=== PATIENT | male | born 1960 | race Hispanic/Latino ===

== ENCOUNTER 2016-05-07 20:24 | Inpatient (IN) | payer MEDICAID, OTHER ==
[2016-05-07 21:41] LABS: BASO % 0.4 % (0.0-2.0); EOS % 0.4 % (0.0-4.0); HEMATOCRIT 47.2 % (35.0-51.0); LYMPH # 1.9 K/uL (1.0-4.3); LYMPH % 21.7 % (20.0-40.0); MEAN CELL VOLUME 92.2 fl (80.0-94.0); MEAN CORPUSCULAR HEMOGLOBIN 30.2 pg (27.0-31.0); MEAN CORPUSCULAR HGB CONC 32.8 g/dL (33.0-37.0); MEAN PLATELET VOLUME 8.2 fl (7.2-11.7); MONO # 0.7 K/uL (0.0-0.8); MONO % 8.5 % (0.0-10.0); NRBC % 0.1 % (0.0-0.0); RED CELL DISTRIBUTION WIDTH 13.8 % (11.5-14.5); WHITE BLOOD COUNT 8.7 K/uL (4.8-10.8)
[2016-05-07 21:52] LABS: ALB/GLOB RATIO 1.4 (1.0-2.1); ALCOHOL SERUM < 10 mg/dl (0-10); ALKALINE PHOSPHATASE 60 U/L (38-126); ALT/SGPT 52 U/L (21-72); AST/SGOT 107 U/L (17-59); BILIRUBIN,TOTAL 0.6 mg/dl (0.2-1.3); BLOOD UREA NITROGEN 23 mg/dl (9-20); CALCIUM 10.2 mg/dL (8.4-10.2); CARBON DIOXIDE 20 mmol/L (22-30); CHLORIDE 105 mmol/L (98-107); GFR AFRICAN-AMERICAN > 60; GLUCOSE,RANDOM 111 mg/dL (75-110); POTASSIUM 3.4 MMOL/L (3.6-5.0); SODIUM 148 mmol/l (132-148); TOTAL PROTEIN 8.5 G/DL (6.3-8.2)
[2016-05-07] MEDS ORDERED: Potassium Chloride 20 mEq ER Tab PO ONE (22:24)
--- NOTE | 2016-05-07 22:27 | ED PDOC ---
HPI: Psych/Substance Abuse Time Seen by Provider: 05/07/16 20:38 Chief Complaint (Nursing): Psychiatric Evaluation Chief Complaint (Provider): crisis eval History Per: Patient, EMS Additional History Per: Patient, EMS Additional Complaint(s): 55 y/o male brought in by EMS for crisis eval. Patient found outside staring at stop sign. Upon arrival patient with flight of idea's, speaking in yazdanism terms. however, responds appropriately when direct questions asked. Denies suicidal/homicidal ideations, acute medical complaints. Past Medical History Reviewed: Historical Data, Nursing Documentation, Vital Signs Vital Signs: Last Vital Signs Temp 97.5 F L 05/07/16 20:28 Pulse 96 H 05/07/16 20:28 Resp 16 05/07/16 20:28 BP 162/98 H 05/07/16 20:28 Pulse Ox 99 05/07/16 20:28 - Medical History PMH: Hypercholesterolemia Denies: Chronic Kidney Disease - Surgical History Surgical History: CABG (july 15) - Family History Family History: States: Unknown Family Hx - Immunization History Hx Tetanus Toxoid Vaccination: No Hx Influenza Vaccination: Yes Hx Pneumococcal Vaccination: No - Home Medications Home Medications: Ambulatory Orders Medication Instructions Recorded Pseudoephedrine Hydrochlorid 120 mg PO Q12 PRN 05/28/13 [Sudafed 12 Hour] Albuterol HFA [Ventolin HFA 90 2 puff IH [id number] PRN #1 puff 12/19/13 mcg/actuation (8 g)] - Allergies Allergies/Adverse Reactions: Allergies Allergy/AdvReac Type Severity Reaction Status Date / Time No Known Allergies Allergy Verified 12/19/13 20:06 Review of Systems ROS Statement: Except As Marked, All Systems Reviewed And Found Negative Psych: Positive for: Psychosis Physical Exam - Reviewed Nursing Documentation Reviewed: Yes Vital Signs Reviewed: Yes - Physical Exam Appears: Positive for: Well, Non-toxic, No Acute Distress Head Exam: Positive for: ATRAUMATIC, NORMAL INSPECTION, NORMOCEPHALIC Skin: Positive for: Normal Color Eye Exam: Positive for: Normal appearance, EOMI, PERRL ENT: Positive for: Normal ENT Inspection Cardiovascular/Chest: Positive for: Regular Rate, Rhythm Respiratory: Positive for: Normal Breath Sounds Gastrointestinal/Abdominal: Positive for: Normal Exam Extremity: Positive for: Normal ROM Neurologic/Psych: Positive for: Alert, Oriented - Laboratory Results Result Diagrams: 05/07/16 21:20 05/07/16 21:20 - ECG ECG: Positive for: Viewed By Me (reviewed by ED attending) ECG Rhythm: Positive for: Sinus Rhythm O2 Sat by Pulse Oximetry: 99 - Radiology X-Ray: Viewed By Me X-Ray Interpretation: No Acute Disease - Progress ED Course And Treament: labs, ekg, chest xray, urine, crisis eval EXAM: CT Head Without Intravenous Contrast. CLINICAL HISTORY: 55 years old, male; Signs and symptoms; Altered mental status/memory loss; Additional info: AMS TECHNIQUE: Axial computed tomography images of the head/brain without intravenous contrast. This CT exam was performed using one or more of the following dose reduction techniques: automated exposure control, adjustment of the mA and/or kV according to patient size, and/or use of iterative reconstruction technique. Coronal reformatted images were created and reviewed. EXAM DATE/TIME: 05/07/2016 11:33 PM COMPARISON: There are no prior studies for comparison. FINDINGS: Brain: Ventricles are normal in size and configuration. There is no midline shift. There is mild prominence of sulci and gyri. There are no intra-axial or extra-axial mass lesions or areas of hemorrhage. There are no abnormal fluid collections. Shirley-white differentiation is maintained. Ventricles: See above. Bones: Cranial vault is intact. Soft tissues: unremarkable Sinuses: There is mucoperiosteal thickening in the sinuses. There is an air- fluid level in the right maxillary sinus.. Ears and mastoids: Middle ears and mastoids are unremarkable Orbits: Orbital contents are unremarkable. IMPRESSION: No acute intracranial abnormality; sinus disease Medical Decision Making Medical Decision Making: Patient medically stable for psych admission. Disposition - Clinical Impression Clinical Impression: Acute psychosis - Patient ED Disposition Is Patient to be Admitted: Yes - Disposition Disposition Time: 00:10 Condition: STABLE - Pt Status Changed To: Hospital Disposition Of: Inpatient - Admit Certification Admit to Inpatient:: After my assessment, the patient will require hospitalization for at least two midnights. This is because of the severity of symptoms shown, intensity of services needed, and/or the medical risk in this patient being treated as an outpatient. - POA Present On Arrival: None
[2016-05-07 22:44] LABS: RBC URINE 7 /hpf (0-3); URINE BILIRUBIN NEGATIVE (NEGATIVE); URINE BLOOD NEGATIVE (NEGATIVE); URINE COLOR AMBER (YELLOW); URINE GLUCOSE (UA) NEG (Normal); URINE KETONE 20 mg/dL (NEGATIVE); URINE LEUKOCYTE ESTERASE NEG Leu/uL (Negative); URINE PROTEIN 100 mg/dL (NEGATIVE); WBC URINE 8 /hpf (0-5)
--- NOTE | 2016-05-08 00:11 | CT ---
EXAM: CT Head Without Intravenous Contrast. CLINICAL HISTORY: 55 years old, male; Signs and symptoms; Altered mental status/memory loss; Additional info: AMS TECHNIQUE: Axial computed tomography images of the head/brain without intravenous contrast. This CT exam was performed using one or more of the following dose reduction techniques: automated exposure control, adjustment of the mA and/or kV according to patient size, and/or use of iterative reconstruction technique. Coronal reformatted images were created and reviewed. EXAM DATE/TIME: 05/07/2016 11:33 PM COMPARISON: There are no prior studies for comparison. FINDINGS: Brain: Ventricles are normal in size and configuration. There is no midline shift. There is mild prominence of sulci and gyri. There are no intra-axial or extra-axial mass lesions or areas of hemorrhage. There are no abnormal fluid collections. Shirley-white differentiation is maintained. Ventricles: See above. Bones: Cranial vault is intact. Soft tissues: unremarkable Sinuses: There is mucoperiosteal thickening in the sinuses. There is an air-fluid level in the right maxillary sinus.. Ears and mastoids: Middle ears and mastoids are unremarkable Orbits: Orbital contents are unremarkable. IMPRESSION: No acute intracranial abnormality; sinus disease
[2016-05-08 02:20] VITALS: O2SAT 99
[2016-05-08] MEDS ORDERED: DiphenhydrAMINE 50 mg/ml Inj IM PRN (02:28)
[2016-05-08] MEDS ORDERED: Alum-Mag Hydrox-Simethicone Susp (30 mL) PO PRN (02:28)
--- NOTE | 2016-05-08 08:22 | RAD ---
HISTORY: admission COMPARISON: 12/19/2013 TECHNIQUE: Chest PA and lateral FINDINGS: LUNGS: No active pulmonary disease. PLEURA: No significant pleural effusion identified. No pneumothorax apparent. CARDIOVASCULAR: Normal. OSSEOUS STRUCTURES: Sternal wires VISUALIZED UPPER ABDOMEN: Normal. OTHER FINDINGS: None. IMPRESSION: No active disease.
--- NOTE | 2016-05-08 17:31 | CARD ---
APPROVED REPORT EKG Measurement Heart [id number] <Conclusion> Normal sinus rhythm Possible Left atrial enlargement Borderline ECG
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
[2016-05-08] MEDS ORDERED: Albuterol HFA 90 mcg/actuation (8 g) IH PRN (22:36)
[2016-05-09 07:29] LABS: BLOOD UREA NITROGEN 17 mg/dl (9-20); CALCIUM 9.8 mg/dL (8.4-10.2); CARBON DIOXIDE 26 mmol/L (22-30); CHLORIDE 104 mmol/L (98-107); GFR AFRICAN-AMERICAN > 60; GLUCOSE,RANDOM 89 mg/dL (75-110); POTASSIUM 3.5 MMOL/L (3.6-5.0); SODIUM 146 mmol/l (132-148)
--- NOTE | 2016-05-09 14:21 | PCM.PYCHPN ---
Psychiatric Progress Note - Psychiatric Progress Note Patient seen today, length of contact: in treatment team Patient Chief Complaint: i am being subservient aren't i? Problems Identified/Issues Discussed: pt seen in team. denying psychotic symptoms, but thoughts are not organized. he intellectualizes his symptoms/bizarre behaviors as an linguistic and philosophical choice. he takes risperdal despite denying he has a mental illness. he does endorse feeling better. he seems to be taking on a strategy to be passive and accepting any treatment offered to improve his chances of discharge. Medication Change: No Medical Record Reviewed: Yes Mental Status Examination - Cognitive Function Orientation: Person, Place, Situation Memory: Intact Attention: WNL Concentration: WNL Association: Loose Fund of Knowledge: WNL Decription of patient's judgement and insights: poor insight, fair judgment - Mood Mood: Neutral - Affect Affect: Blunted - Speech Speech: Appropriate - Formal Thought Process Formal Thought Process: Delusions, Paranoia, Loosening of associations, Flight of ideas Psychotic Thoughts and Behaviors: pt with disorganized thoughts, tangential answers to questions. - Suicidal Ideation Suicidal Ideation: No - Homicidal Ideation Homicidal Ideation: No Goal/Treatment Plan - Goal/Treatment Plan Need for Continued Stay: Remain at risks for inpatient hospitalization, Discharge may exacerbated symptoms, Severe functional impairment Progress Toward Problem(s) and Goals/Treatment Plan: schizophrenia needs further treatment will increase risperdal tomorrow disposition planing- could benefit from a php program Estimated Date of D/C: 05/14/16
--- NOTE | 2016-05-10 10:25 | PCM.PYCHPN ---
Psychiatric Progress Note - Psychiatric Progress Note Patient seen today, length of contact: in treatment team Patient Chief Complaint: i will do as i'm told Problems Identified/Issues Discussed: pt spends time in room talking to himself. he denies medication side effects. he is without any aggression or agitation. continues to deny he has a mental illness despite accepting treatment. Medication Change: No Medical Record Reviewed: Yes Mental Status Examination - Cognitive Function Orientation: Person, Place, Situation Memory: Intact Attention: WNL Concentration: WNL Association: Loose Fund of Knowledge: WNL Decription of patient's judgement and insights: superficial insight, fair judgment - Mood Mood: Neutral - Affect Affect: Blunted - Speech Speech: Appropriate - Formal Thought Process Formal Thought Process: Delusions, Paranoia, Loosening of associations, Flight of ideas - Suicidal Ideation Suicidal Ideation: No - Homicidal Ideation Homicidal Ideation: No Goal/Treatment Plan - Goal/Treatment Plan Need for Continued Stay: Remain at risks for inpatient hospitalization, Discharge may exacerbated symptoms, Severe functional impairment Progress Toward Problem(s) and Goals/Treatment Plan: schizophrenia needs further treatment will increase risperdal to 2mg hs disposition planing- could benefit from a php program Estimated Date of D/C: 05/14/16
--- NOTE | 2016-05-11 10:25 | PCM.PYCHPN ---
Psychiatric Progress Note - Psychiatric Progress Note Patient seen today, length of contact: discussed with team Patient Chief Complaint: did you get the article? Problems Identified/Issues Discussed: pt still pacing halls or in room talking to self. pt wants to share an article about psychology and multiple dimensions and asks to provide team with a power point presentation about the subject. he is complaint with medications. he denies side effects. he is bizarre in his behavior with peers./staff. Medication Change: Yes (increase risperdal) Medical Record Reviewed: Yes Mental Status Examination - Cognitive Function Orientation: Person, Place, Situation Memory: Intact Attention: WNL Concentration: WNL Association: Loose Fund of Knowledge: WNL - Mood Mood: Neutral - Affect Affect: Blunted - Speech Speech: Appropriate - Formal Thought Process Formal Thought Process: Delusions, Paranoia, Loosening of associations, Flight of ideas - Suicidal Ideation Suicidal Ideation: No - Homicidal Ideation Homicidal Ideation: No Goal/Treatment Plan - Goal/Treatment Plan Need for Continued Stay: Remain at risks for inpatient hospitalization, Discharge may exacerbated symptoms, Severe functional impairment Progress Toward Problem(s) and Goals/Treatment Plan: schizophrenia needs further treatment will increase risperdal to 2mg hs disposition planing- could benefit from a php program Estimated Date of D/C: 05/14/16
[2016-05-11] MEDS: Risperidone M tab 1 MG PO SCH (11:30)
[2016-05-12] MEDS: Risperidone M tab 1 MG PO SCH (09:39)
--- NOTE | 2016-05-12 10:30 | PCM.PYCHPN ---
Psychiatric Progress Note - Psychiatric Progress Note Patient seen today, length of contact: pt seen and evaluated Patient Chief Complaint: pt has remained very delusional and grandiose with disorganized thinking DSM 5 Symptoms Update: schizophrenia ,paranoid type Medication Change: Yes (increase risperdal) Medical Record Reviewed: Yes Mental Status Examination - Cognitive Function Orientation: Person, Place, Situation Memory: Intact Attention: WNL Concentration: WNL Association: Loose Fund of Knowledge: WNL - Mood Mood: Neutral - Affect Affect: Blunted - Speech Speech: Appropriate - Formal Thought Process Formal Thought Process: Delusions, Paranoia, Loosening of associations, Flight of ideas - Suicidal Ideation Suicidal Ideation: No - Homicidal Ideation Homicidal Ideation: No Goal/Treatment Plan - Goal/Treatment Plan Need for Continued Stay: Remain at risks for inpatient hospitalization, Discharge may exacerbated symptoms, Severe functional impairment Progress Toward Problem(s) and Goals/Treatment Plan: will increase risperdal to 2mg in am to stabilize the psychosis Estimated Date of D/C: 05/14/16
--- NOTE | 2016-05-13 13:21 | PCM.PYCHPN ---
Psychiatric Progress Note - Psychiatric Progress Note Patient seen today, length of contact: pt seen and evaluated Patient Chief Complaint: pt has remained very delusional and grandiose with disorganized thinking pt has been less paranoid with increase in risperdal Problems Identified/Issues Discussed: admitted for grandiose delusions and disorganized thinking DSM 5 Symptoms Update: schizophrenia disorganized Medication Change: Yes (increase risperdal) Medical Record Reviewed: Yes Mental Status Examination - Cognitive Function Orientation: Person, Place, Situation Memory: Intact Attention: WNL Concentration: WNL Association: Loose Fund of Knowledge: WNL - Mood Mood: Neutral - Affect Affect: Blunted - Speech Speech: Appropriate - Formal Thought Process Formal Thought Process: Delusions, Paranoia, Loosening of associations, Flight of ideas - Suicidal Ideation Suicidal Ideation: No - Homicidal Ideation Homicidal Ideation: No Goal/Treatment Plan - Goal/Treatment Plan Need for Continued Stay: Remain at risks for inpatient hospitalization, Discharge may exacerbated symptoms, Severe functional impairment Progress Toward Problem(s) and Goals/Treatment Plan: will increase risperdal to 2mg in am to stabilize the psychosis Estimated Date of D/C: 05/14/16
[2016-05-14] MEDS: Risperidone M TAB 2 MG PO SCH ×2 (10:14→23:33)
--- NOTE | 2016-05-14 11:25 | PCM.PYCHPN ---
Psychiatric Progress Note - Psychiatric Progress Note Patient seen today, length of contact: discussed with team Patient Chief Complaint: i am well thank you Problems Identified/Issues Discussed: pt still internally preoccupied. bizarre at times. attempts to engage peers/ staff in intellectual conversations on esoteric topics with little insight into his own behaviors and no acknowledgment that he has a mental illness. he is still agreeable to treatment and he is denying any medication side effects. Medication Change: Yes (continue to increase risperdal) Medical Record Reviewed: Yes Mental Status Examination - Cognitive Function Orientation: Person, Place, Situation Memory: Intact Attention: WNL Concentration: WNL Association: Loose Fund of Knowledge: WNL Decription of patient's judgement and insights: poor insight, fair judgment - Mood Mood: Neutral - Affect Affect: Blunted - Speech Speech: Appropriate - Formal Thought Process Formal Thought Process: Delusions, Paranoia, Loosening of associations, Flight of ideas - Suicidal Ideation Suicidal Ideation: No - Homicidal Ideation Homicidal Ideation: No Goal/Treatment Plan - Goal/Treatment Plan Need for Continued Stay: Remain at risks for inpatient hospitalization, Discharge may exacerbated symptoms, Severe functional impairment Progress Toward Problem(s) and Goals/Treatment Plan: schizophrenia needs further treatment will increase risperdal to 2mg hs and 2mg am disposition planing- could benefit from a php program Estimated Date of D/C: 05/18/16
--- NOTE | 2016-05-15 09:27 | PCM.PYCHPN ---
Psychiatric Progress Note - Psychiatric Progress Note Patient seen today, length of contact: Patient evaluated, chart reviewed, case discussed with team Problems Identified/Issues Discussed: Patient continues to be disorganized, loose and tangential on conversation. He reports his mood is good, but does not give direct answers to most questions. When asked about AH, he stated that all people hear AH; but it is unclear if he is actually having AH. He is stating that he wants to leave the hospital soon and is upset that he wasn't given an orientation on how to behave on the unit. Denies suicidal/homicidal ideation. Medication Change: Yes (Increase Risperdal to 2 mg PO AM/ 2.5 mg PO HS) Medical Record Reviewed: Yes Mental Status Examination - Cognitive Function Orientation: Person, Place, Situation Memory: Intact Attention: WNL Concentration: WNL Association: Loose Fund of Knowledge: WNL Decription of patient's judgement and insights: Poor I/J - Mood Mood: Neutral - Affect Affect: Broad - Speech Speech: Appropriate - Formal Thought Process Formal Thought Process: Delusions, Paranoia, Loosening of associations, Flight of ideas - Suicidal Ideation Suicidal Ideation: No - Homicidal Ideation Homicidal Ideation: No Goal/Treatment Plan - Goal/Treatment Plan Need for Continued Stay: Remain at risks for inpatient hospitalization, Discharge may exacerbated symptoms, Severe functional impairment Progress Toward Problem(s) and Goals/Treatment Plan: Impression: Schizophrenia, acutely psychotic and disorganized, requires continued inpatient admission for treatment and safety. Plan: -Increase Risperdal to 2 mg PO AM/ 2.5 mg PO HS -Individual, group and milieu tx -Disposition planing- could benefit from a php program Estimated Date of D/C: 05/18/16
[2016-05-15] MEDS: Risperidone M TAB 2 MG PO SCH ×2 (09:44→21:40)
--- NOTE | 2016-05-16 09:00 | PCM.PYCHPN ---
Psychiatric Progress Note - Psychiatric Progress Note Patient seen today, length of contact: discussed with team Patient Chief Complaint: i don't have psychosis Problems Identified/Issues Discussed: pt is refusing risperdal as he states it "freezes my whole alimentary canal" he denies being psychotic and defends his odd behaviors prior to admission as "psychoanalytic fanaticism" he feels he should be discharged and states he only stayed in the hospital because he was told he only would stay 5-7 days. he is pacing the halls, internally preoccupied. Medication Change: No ( ) Medical Record Reviewed: Yes Mental Status Examination - Cognitive Function Orientation: Person, Place, Situation Memory: Intact Attention: WNL Concentration: WNL Association: Loose Fund of Knowledge: WNL Decription of patient's judgement and insights: poor - Mood Mood: Neutral - Affect Affect: Blunted - Speech Speech: Appropriate - Formal Thought Process Formal Thought Process: Delusions, Paranoia, Loosening of associations, Flight of ideas Psychotic Thoughts and Behaviors: disorganized thoughts, denies a/v hallucinations - Suicidal Ideation Suicidal Ideation: No - Homicidal Ideation Homicidal Ideation: No Goal/Treatment Plan - Goal/Treatment Plan Need for Continued Stay: Remain at risks for inpatient hospitalization, Discharge may exacerbated symptoms, Severe functional impairment Progress Toward Problem(s) and Goals/Treatment Plan: schizophrenia needs further treatment will screen for involuntary hospitalization as pt is refusing treatment disposition planing- could benefit from a php program Estimated Date of D/C: 05/18/16
[2016-05-16 15:52] LABS: BASO % 0.8 % (0.0-2.0); EOS # 0.2 K/uL (0.0-0.7); EOS % 2.8 % (0.0-4.0); LYMPH # 1.6 K/uL (1.0-4.3); LYMPH % 28.3 % (20.0-40.0); MEAN CELL VOLUME 92.2 fl (80.0-94.0); MEAN CORPUSCULAR HEMOGLOBIN 30.5 pg (27.0-31.0); MEAN CORPUSCULAR HGB CONC 33.1 g/dL (33.0-37.0); MONO # 1.1 K/uL (0.0-0.8); NEUT # 2.7 K/uL (1.8-7.0); NEUT % 48.1 % (50.0-75.0); NRBC % 0.1 % (0.0-0.0); RED CELL DISTRIBUTION WIDTH 13.5 % (11.5-14.5); WHITE BLOOD COUNT 5.6 K/uL (4.8-10.8)
[2016-05-16 16:04] LABS: ALB/GLOB RATIO 1.5 (1.0-2.1); ALKALINE PHOSPHATASE 67 U/L (38-126); ALT/SGPT 49 U/L (21-72); AST/SGOT 46 U/L (17-59); BILIRUBIN,TOTAL 0.3 mg/dl (0.2-1.3); BLOOD UREA NITROGEN 12 mg/dl (9-20); CALCIUM 10.1 mg/dL (8.4-10.2); CARBON DIOXIDE 27 mmol/L (22-30); CHLORIDE 102 mmol/L (98-107); GFR AFRICAN-AMERICAN > 60; GLUCOSE,RANDOM 101 mg/dL (75-110); POTASSIUM 3.5 MMOL/L (3.6-5.0); SODIUM 145 mmol/l (132-148); TOTAL PROTEIN 7.8 G/DL (6.3-8.2)
[2016-05-16 16:26] VITALS: RESP 18
[2016-05-16 17:33] LABS: RBC URINE 1 /hpf (0-3); URINE BILIRUBIN NEGATIVE (NEGATIVE); URINE BLOOD NEGATIVE (NEGATIVE); URINE COLOR YELLOW (YELLOW); URINE GLUCOSE (UA) NEG (Normal); URINE KETONE NEGATIVE (NEGATIVE); URINE LEUKOCYTE ESTERASE TRACE Leu/uL (Negative); URINE PROTEIN NEGATIVE (NEGATIVE); WBC URINE 3 /hpf (0-5)
[2016-05-16] MEDS: Risperidone M TAB 2 MG PO SCH ×2 (17:33→21:36)
[2016-05-17] MEDS: Risperidone M TAB 2 MG PO SCH ×2 (08:42→21:12)
--- NOTE | 2016-05-17 12:09 | PCM.PYCHPN ---
Psychiatric Progress Note - Psychiatric Progress Note Patient seen today, length of contact: discussed with team Patient Chief Complaint: do i really have to go there Problems Identified/Issues Discussed: pt is refusing medications. he is asking for niacin only. he attends groups. he engages in superficial intellectual discussions. he states his mission is to "psychoanalyze the world" he is paranoid. he is aware of his transfer to [facility] [place]. Medication Change: No ( ) Medical Record Reviewed: Yes Mental Status Examination - Cognitive Function Orientation: Person, Place, Situation Memory: Intact Attention: WNL Concentration: WNL Association: Loose Fund of Knowledge: WNL Decription of patient's judgement and insights: fair - Mood Mood: Anxious - Affect Affect: Blunted - Speech Speech: Appropriate - Formal Thought Process Formal Thought Process: Delusions, Paranoia, Loosening of associations, Flight of ideas Psychotic Thoughts and Behaviors: paranoid, disorganized - Suicidal Ideation Suicidal Ideation: No - Homicidal Ideation Homicidal Ideation: No Goal/Treatment Plan - Goal/Treatment Plan Need for Continued Stay: Remain at risks for inpatient hospitalization, Discharge may exacerbated symptoms, Severe functional impairment, Other Progress Toward Problem(s) and Goals/Treatment Plan: schizophrenia needs further treatment pt to transfer to [facility] when a bed available will start niacin at pt's request. Estimated Date of D/C: 05/18/16
[2016-05-18] MEDS: Risperidone M TAB 2 MG PO SCH ×2 (09:16→21:53)
--- NOTE | 2016-05-18 13:03 | PCM.PYCHPN ---
Psychiatric Progress Note - Psychiatric Progress Note Patient seen today, length of contact: discussed with team Patient Chief Complaint: thank you for the niacin Problems Identified/Issues Discussed: pt is refusing medications. he feels niacin is helpful. he is on the pay phone much of the am today. he is aware of his pending transfer to another facility. he remains disorganized in his thoughts. Medication Change: No ( ) Medical Record Reviewed: Yes Mental Status Examination - Cognitive Function Orientation: Person, Place, Situation Memory: Intact Attention: WNL Concentration: WNL Association: Loose Fund of Knowledge: WNL Decription of patient's judgement and insights: poor - Mood Mood: Anxious - Affect Affect: Blunted - Speech Speech: Appropriate - Formal Thought Process Formal Thought Process: Delusions, Paranoia, Loosening of associations, Flight of ideas - Suicidal Ideation Suicidal Ideation: No - Homicidal Ideation Homicidal Ideation: No Goal/Treatment Plan - Goal/Treatment Plan Need for Continued Stay: Remain at risks for inpatient hospitalization, Discharge may exacerbated symptoms, Severe functional impairment, Other Progress Toward Problem(s) and Goals/Treatment Plan: schizophrenia needs further treatment [place] [facility] [place] continue niacin Estimated Date of D/C: 05/18/16
[2016-05-19] MEDS: Risperidone M TAB 2 MG PO SCH (08:43)
[2016-05-19 08:57] VITALS: BP 132/81; PULSE 82; TEMP 96.4
--- NOTE | 2016-05-19 11:42 | PCM.PYCHPN ---
Psychiatric Progress Note - Psychiatric Progress Note Patient seen today, length of contact: discussed with team Patient Chief Complaint: do you think that xxxx(name of pt) looks jaundiced, i think you should check for hepatitis Problems Identified/Issues Discussed: pt is still refusing meds. he is intrusive with peers. spends his day in room talking to self. pt today is asking this keno writer / runner to check other pt for hepatitis as he thinks they look jaundiced. he continues to lecture about psychoanalytic theory. Medication Change: No ( ) Medical Record Reviewed: Yes Mental Status Examination - Cognitive Function Orientation: Person, Place, Situation Memory: Intact Attention: WNL Concentration: WNL Association: Loose Fund of Knowledge: WNL Decription of patient's judgement and insights: poor insight - Mood Mood: Anxious - Affect Affect: Blunted - Speech Speech: Appropriate - Formal Thought Process Formal Thought Process: Delusions, Paranoia, Loosening of associations, Flight of ideas - Suicidal Ideation Suicidal Ideation: No - Homicidal Ideation Homicidal Ideation: No Goal/Treatment Plan - Goal/Treatment Plan Need for Continued Stay: Remain at risks for inpatient hospitalization, Discharge may exacerbated symptoms, Severe functional impairment, Other Progress Toward Problem(s) and Goals/Treatment Plan: schizophrenia needs further treatment [place] [facility] [place] continue niacin Estimated Date of D/C: 05/18/16
--- NOTE | 2016-05-19 12:26 | PCM.PYCHDC ---
Mental Status Examination - Mental Status Examination Description of patient's judgement and insight: poor insight Psychotic Thoughts and Behaviors: paranoid, disorganized Suicidal Ideation: No Current Homicidal Ideation?: No Plan: see mse from today's progress note Discharge Summary - Discharge Note Reason for Hospitalization: bizarre behaviors/psychosis Psychiatric History (includes Medical, Family, Personal Hx): denies history of treatment for psychosis Consultations:: List each consultation separately and include: 1. Reason for request. 2. Findings. 3. Follow-up Consultations: seen by the hospitalist Summary of Hospital Course include:: 1. Description of specific treatment plan utilized for patients during their course of treatmen. 2. Summarize the time- course for resolution of acute symptoms and/or regressed behaviors. 3. Describe issues identified and worked on during hospitalization. 4. Describe medication utilized. 5. Describe medical problems identified and treated. 6. Reassessment of suicide risk Summary of Hospital Course: pt was admitted to [facility] and oriented to the unit. he was placed on routine safety protocols. he was started on risperdal and the dose was titrated up to target his psychosis. pt, expressed that "my contact " and stopped taking risperdal. he became more irritable and was demanding discharge. he signed a 48 hour notice and was screened by the [facility] and found to meet criteria for an involuntary assessment. while taking risperdal, but showed minimal improvement, but no c/o side effects. he continued to report that he did not have any problems with mental illness and, in fact was here to psychoanalyze everyone in the world. he was observed talking to himself in his room during down times on the unit. he was expressing belief that he was being followed and monitored by the government because he was conducting some concerning research regarding mass killings from the [employer]. the pt continued to deny any a/v hallucinations or si/hi. - Final Diagnosis (DSM 5) Condition upon Discharge: STABLE DSM 5: schizophrenia, paranoid Disposition: HOME/ ROUTINE Follow-up Treatment Plan: pt to f/u with the treatment team at [facility] - Smoking Cessation Smoking Cessation Medication prescribed: No Reason for not providing: does not smoke - Antipsychotic Medications Pt discharged on 2 or more routine antipsychotic medications: No
== END 2016-05-19 15:42 | DRG 430 ==
LOC: H.ER 20:24 → H.ERHOLD 05-08 00:23 → H.PSYCH 05-08 02:18
PROVIDERS: ADMIT Psychiatry & Neurology Psychiatry; ATTEND Psychiatry & Neurology Psychiatry
PROC: GZHZZZZ Group Psychotherapy (ICD-10-PCS; principal; 2016-05-08)
DX: F20.0 Paranoid schizophrenia (principal); E87.5 Hyperkalemia; E86.0 Dehydration; E78.5 Hyperlipidemia, unspecified; J45.909 Unspecified asthma, uncomplicated; F17.200 Nicotine dependence, unspecified, uncomplicated; E78.00 Pure hypercholesterolemia, unspecified; I25.10 Atherosclerotic heart disease of native coronary artery without angina pectoris; Z95.1 Presence of aortocoronary bypass graft

== ENCOUNTER 2017-07-24 09:55 | Emergency (ER) | payer MEDICAID ==
[2017-07-24 10:00] VITALS: BMI 23.8
--- NOTE | 2017-07-24 10:04 | ED PDOC ---
HPI: Psych/Substance Abuse Time Seen by Provider: 07/24/17 10:04 Chief Complaint (Provider): Aggressive behavior History Per: Patient History/Exam Limitations: no limitations Onset/Duration Of Symptoms: Days (today) Additional Complaint(s): Pt. called police about a bomb he had. He was talking in tangents so sent to the ER. Pt. states he called in a bomb threat. Then he goes to talk about texting about a threat in [place] at a restaurant. Pt. is talking in multiple tangents. Denies suicidal or homicidal ideation. Is pain free. No dyspnea. Takes niacin but no psychiatric medicine. No chest pain, dyspnea, drugs, etoh. States he has all 10 psychiatric issues. 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) - Family History Family History: States: Unknown Family Hx - Immunization History Hx Tetanus Toxoid Vaccination: No Hx Influenza Vaccination: Yes Hx Pneumococcal Vaccination: No - Home Medications Home Medications: Ambulatory Orders Medication Instructions Recorded Pseudoephedrine Hydrochlorid 120 mg PO Q12 PRN 05/28/13 [Sudafed 12 Hour] Albuterol HFA [Ventolin HFA 90 2 puff IH [id number] PRN #1 puff 12/19/13 mcg/actuation (8 g)] - Allergies Allergies/Adverse Reactions: Allergies Allergy/AdvReac Type Severity Reaction Status Date / Time No Known Allergies Allergy Verified 12/19/13 20:06 Review of Systems ROS Statement: Except As Marked, All Systems Reviewed And Found Negative Psych: Positive for: Psychosis Physical Exam - Reviewed Nursing Documentation Reviewed: Yes Vital Signs Reviewed: Yes - Physical Exam Appears: Positive for: Non-toxic, No Acute Distress Head Exam: Positive for: ATRAUMATIC, NORMAL INSPECTION, NORMOCEPHALIC Skin: Positive for: Normal Color, Warm, DRY Eye Exam: Positive for: EOMI, Normal appearance, PERRL ENT: Positive for: Normal ENT Inspection Neck: Positive for: Normal, Painless ROM Cardiovascular/Chest: Positive for: Regular Rate, Rhythm Respiratory: Positive for: CNT, Normal Breath Sounds Gastrointestinal/Abdominal: Positive for: Normal Exam, Soft. Negative for: Tenderness Back: Positive for: Normal Inspection. Negative for: L CVA Tenderness, R CVA Tenderness Extremity: Positive for: Normal ROM. Negative for: Tenderness, Pedal Edema Neurologic/Psych: Positive for: Alert, Oriented. Negative for: Motor/Sensory Deficits, Aphasia, Facial Droop - Laboratory Results Result Diagrams: 07/24/17 10:30 07/24/17 10:30 Interpretation Of Abn Labs: no acute - ECG ECG: Positive for: Interpreted By Me, Viewed By Me ECG Rhythm: Positive for: Normal QRS, Normal ST Segment, Sinus Rhythm - Progress ED Course And Treament: 1500: Stable. Medically cleared. [place] [facility]: Dr. Clemente [place] [facility] Disposition - Clinical Impression Clinical Impression: Acute psychosis - Patient ED Disposition Is Patient to be Admitted: Transfer of Care - Disposition Disposition: Transfer of Care Disposition Time: 18:50 Condition: STABLE Patient Signed Over To: Murtaza Clemente
[2017-07-24 10:58] LABS: BASO % 1.1 % (0.0-2.0); EOS # 0.4 K/uL (0.0-0.7); EOS % 9.3 % (0.0-4.0); HEMOGLOBIN 14.2 g/dL (12.0-18.0); LYMPH # 1.7 K/uL (1.0-4.3); LYMPH % 39.3 % (20.0-40.0); MEAN CELL VOLUME 90.7 fl (80.0-94.0); MEAN CORPUSCULAR HEMOGLOBIN 30.8 pg (27.0-31.0); MEAN PLATELET VOLUME 7.9 fl (7.2-11.7); MONO # 0.4 K/uL (0.0-0.8); MONO % 8.5 % (0.0-10.0); NEUT # 1.8 K/uL (1.8-7.0); NEUT % 41.8 % (50.0-75.0); NRBC % 0.1 % (0.0-0.0); RBC 4.6 Mil/uL (4.40-5.90); RED CELL DISTRIBUTION WIDTH 13.6 % (11.5-14.5); WHITE BLOOD COUNT 4.3 K/uL (4.8-10.8)
[2017-07-24 11:11] LABS: BLOOD UREA NITROGEN 8 mg/dl (9-20); CALCIUM 9.2 mg/dL (8.4-10.2); GFR AFRICAN-AMERICAN > 60; GFR NON-AFRICAN AMERICAN > 60
[2017-07-24 14:29] LABS: BARBITURATES, UR NEGATIVE (NEGATIVE); BENZODIAZEPINES, UR NEGATIVE (NEGATIVE); OPIATES, UR NEGATIVE (NEGATIVE); PHENCYCLIDINE, UR NEGATIVE (NEGATIVE)
--- NOTE | 2017-07-24 16:26 | RAD ---
HISTORY: psych eval COMPARISON: 05/07/2016 FINDINGS: LUNGS: No active pulmonary disease. PLEURA: No significant pleural effusion identified, no pneumothorax apparent. CARDIOVASCULAR: Normal heart size. Midline sternotomy. Discontinuous superior sternal wires unchanged. Coronary artery bypass clips. OSSEOUS STRUCTURES: No significant abnormalities. VISUALIZED UPPER ABDOMEN: Normal. OTHER FINDINGS: None. IMPRESSION: No active disease.
--- NOTE | 2017-07-24 19:43 | ED PDOC ---
- Laboratory Results Result Diagrams: 07/24/17 10:30 07/24/17 10:30 - ECG O2 Sat by Pulse Oximetry: 99 Medical Decision Making Medical Decision Making: -- Patient signed to me by Dr. Aragon @1900, pending [place] [facility] [place] accepted for involuntary admission by Dr Ramos and kristal Anders Schizophrenia Fair Scribe Attestation: Documented by Summer Nugent, acting as a scribe for Dr. Murtaza Clemente MD. Provider Scribe Attestation: All medical record entries made by the Scribe were at my direction and personally dictated by me. I have reviewed the chart and agree that the record accurately reflects my personal performance of the history, physical exam, medical decision making, and the department course for this patient. I have also personally directed, reviewed, and agree with the discharge instructions and disposition. Disposition - Clinical Impression Clinical Impression: Schizophrenia - POA Present On Arrival: None - Disposition Disposition: Routine/Home Disposition Time: 22:00 Condition: FAIR Forms: [employer] (Malaysian)
[2017-07-24 23:12] VITALS: TEMP 98.2
[2017-07-25 02:43] VITALS: BP 127/77; PULSE 68; RESP 14
[2017-07-25 05:24] VITALS: O2SAT 99
--- NOTE | 2017-07-25 09:21 | CARD ---
APPROVED REPORT EKG Measurement Heart [id number] <Conclusion> Normal sinus rhythm Normal ECG
== END 2017-07-25 02:41 | disposition short-term general hospital (02) ==
LOC: H.ER 09:55
DX: F20.9 Schizophrenia, unspecified (principal); E78.00 Pure hypercholesterolemia, unspecified; Z95.1 Presence of aortocoronary bypass graft